=== PATIENT | female | born 1950 | race Caucasian/White ===

== ENCOUNTER 2019-08-03 13:39 | Inpatient (IN) ==
[2019-08-03] MEDS ORDERED: BACITRACIN OINT 0.9 GM PKT ONE (14:32)
[2019-08-03] MEDS ORDERED: LIDOCAINE HCL 1% 20 ML VIAL ONE (14:32)
[2019-08-03] MEDS ORDERED: BACITRACIN INJ 50,000 UNIT VIAL ONE (14:33)
--- NOTE | 2019-08-03 14:39 | History & Physical Bridge Note ---
Date of Service August 03, 2019 History & Physical Bridge Note I have examined the patient, reviewed the History & Physical and in the interval since the performance of the History & Physical I have noted the following changes of clinical significance: no changes noted. I reviewed the indications, procedure, risks and alternatives of pacemaker replacement and lead replacement with her and she understands and agrees to proceed. Her was present during the discussion. Consent obtained. I also discussed conscious sedation and she is agreeable. Consent obtained.
--- NOTE | 2019-08-03 14:40 | Pre Anesthesia Assessment ---
Date of Service August 03, 2019 Pre Sedation Assessment Vital Signs Temp Pulse Resp BP Pulse Ox 08/03/19 14:07 37.5 C 91 H 18 162/74 H 96 Cardiovascular RRR, no murmur, no edema Respiratory normal respiratory effort, lungs clear to auscultation Pre-Sedation Airway Assessment Smoking Status: Never smoker Hx Sleep Apnea: No Short, Thick Neck: Yes Thyromental Distance: > or= 3.5 Finger Breadths Oral Cavity: + Capped Teeth Mallampati Class: III ASA: ASA3 NPO Status Date of Last Intake of Fluids: 08/03/19 Time of Last Intake of Fluids: 00:00 Date of Last Intake of Solid Food: 08/03/19 Time of Last Intake of Solid Foods: 00:00 Procedure Planning Contraindications for Sedation: none Current Medications Reviewed: Yes Notes The planned sedation has been discussed with the patient. Informed Consent was obtained. I have identified the patient, determined the appropriateness of sedation and have assessed the patient immediately prior to the procedure. All medicine(s) and interventions are by my order.
[2019-08-03] MEDS ORDERED: MIDAZOLAM HCL 5 MG/ML 1 ML VIAL ONE (14:51)
[2019-08-03] MEDS ORDERED: fentaNYL citrate 100 MCG/2 ML VIAL ONE ×2 (14:52→15:11)
--- NOTE | 2019-08-03 16:15 | Operative Report ---
Post Operative Report Pre & Post Diagnosis Operation Date: 08/03/19 15:00 Right ventricular lead malfunction Procedure Operation Date: 08/03/19 15:00 Actual Procedures s Insertion Single Lead Only(Not Applicable) - Gustavo Quintana MD p Pacer Gen Change Dual(Left) - Gustavo Quintana MD s Venogram, Unilateral(Not Applicable) - Gustavo Quintana MD Surgeon Gustavo Quintana MD [employer] None Estimated Blood Loss 30 Findings See Below Ventricular lead fracture, it appears to be located where the lead passes under the clavicle consistent with subclavian crush damage. Specimens Old pacemaker, return to [facility] Anesthesia Type Local Complications none Disposition Disposition: PCU Description of Procedure After obtaining informed consent for the procedure, the patient was brought to the laboratory being NPO after midnight. After identification in the laboratory the patient was prepped and draped in the standard sterile manner for a left- sided device replacement. Dye was injected the left arm IV site to opacify the left subclavian vein. The subclavian vein was identified and found to be free of obstruction. The left prepectoral region was anesthetized with 1% lidocaine local anesthetic and once adequate anesthesia was obtained a 5 cm incision was made through the old implant scar and carried down to the pacemaker generator. The generator was dissected free of tissue and explanted. A bacitracin-soaked sponge(50,000 units in 50 cc normal saline solution) was placed in the pocket. An 8 [place] Medtronic lead introducer was placed over the guidewire into the left subclavian vein, the dilator and guidewire were removed and a bipolar a ctive fixation steroid tipped [place] lead was advanced introducer into the superior vena cava. A guidewire was placed back through the introducer and introducer stripped away from lead and guidewire. Using a curved stylette the ventricular lead was advanced through the right ventricular outflow tract and then using a straight stylette was positioned right ventricular apex. Once in position the ventricular pacing threshold was evaluated and bipolar configuration, details are noted on the pacemaker data sheet. The lead was then attached to the anterior pectoral fascia using 2 sutures of 2-0 silk around the lead collar. The guidewire was removed left subclavian vein. The pacemaker was removed from the leads and the leads were connected to an external pacing system. Pacing and sensing characteristics were evaluated in both the atrial and ventricular leads as noted on the implant data sheet. A new pacemaker was attached to the leads and found to be functioning normally. The old ventricular lead was capped and left in the pocket. The bacitracin-soaked sponge was removed from the pocket, the pacemaker was placed in the pocket with the leads coiled beneath it. The incision was closed with a running double subcutaneous closure of 3-0 Vicryl absorbable suture followed by a running subcuticular skin closure of 4-0 Vicryl absorbable suture. I attest to the content of the Intraoperative Record and any orders documented therein. Any exceptions are noted below.
[2019-08-03] MEDS ORDERED: KETOROLAC TROMETHAMINE 10 MG TABLET PO PRN (16:23)
[2019-08-03] MEDS ORDERED: ACETAMINOPHEN 325 MG TAB PO PRN (16:23)
--- NOTE | 2019-08-03 16:30 | Post Anesthesia Assessment ---
Date of Service August 03, 2019 Post Sedation Assessment Vital Signs Temp Pulse Resp BP Pulse Ox 08/03/19 14:07 37.5 C 91 H 18 162/74 H 96 Recovery Score Activity: Moves 4 extremities Consciousness: Fully Awake Oxygen Saturation: > 92% On Room Air Discharge Sedation Level of Care: Fast Track Phase II Post Sedation Plan On clinical assessment, the patient appears to have tolerated the sedation without complications. Patient is recovering as anticipated. Patient will continue to be monitored by nursing and may be discharged when sedation discharge criteria are met per below protocol. Upon Completions of procedure and additional 15 minutes continue every 5 minute vital signs and the P.A.R. score; then discharge to a Phase I or Fast Track to Phase II per the following guidelines: * Discharge Patient to appropriate Phase II area if PAR is 8 or greater or return to pre- procedure baseline. The post - procedure orders will be as directed. * If PAR score is less than 8 or not return to pre-procedure baseline then patient will follow Phase I monitoring till PAR is reached for Phase II. The Phase I may be done in procedure room or may call to secure a Phase I area. * If naloxone or flumazenil are used for reversal, hold in Phase I for continue d monitoring from when last reversal dose was given for a minimum of 60 minutes or longer pending the nurse and/or physician discretion of patient condition before discharge to Phase II. Please call the Sedation Physician to re-evaluate and complete post-note for discharge to Phase II area. Do NOT discharge from procedure sedation or Phase 1 until post- sedation evaluation note is complete by procedure /sedation MD Sedation Discharge Instructions to be given to the patient at discharge to home.
[2019-08-03 17:43] LABS: INR 1.2 (0.9-1.1); Prothrombin Time 12.5 Seconds (9.0-12.0)
[2019-08-03] MEDS ORDERED: WARFARIN SOD 5 MG TAB PO ONE (18:30)
[2019-08-03] MEDS: CALCIUM CARBONATE 1250MG TAB PO SCH (20:30)
[2019-08-03] MEDS: FAMOTIDINE 20 MG TAB PO SCH (20:30)
[2019-08-04 04:27] LABS: INR 1.2 (0.9-1.1); Prothrombin Time 11.9 Seconds (9.0-12.0)
[2019-08-04] MEDS: CALCIUM CARBONATE 1250MG TAB PO SCH (08:14)
[2019-08-04] MEDS: FAMOTIDINE 20 MG TAB PO SCH (08:14)
[2019-08-04] MEDS ORDERED: LISINOPRIL 10 MG TAB PO SCH (09:00)
[2019-08-04] MEDS ORDERED: ALLOPURINOL 300 MG TAB PO SCH (09:00)
[2019-08-04] MEDS ORDERED: OMEGA-3 (PURIFIED FISH OIL) 1 GM CAP PO SCH (09:00)
[2019-08-04] MEDS ORDERED: CHOLECALCIFEROL 1,000 UNITS TAB PO SCH (09:00)
[2019-08-04] MEDS ORDERED: CITALOPRAM 20 MG TAB PO SCH (09:00)
[2019-08-04] MEDS ORDERED: SIMVASTATIN 10 MG TAB PO SCH (09:00)
[2019-08-04] MEDS ORDERED: FUROSEMIDE 40 MG TAB PO SCH (09:00)
--- NOTE | 2019-08-04 09:27 | XRay Report ---
XR chest 2V routine CLINICAL HISTORY: Pacemaker insertion. COMPARISON STUDY: No previous studies for comparison. FINDINGS: Left subclavian pacemaker is in place. Lead tips project of the right atrial appendage and right ventricle. A previous suspected right ventricular lead is in place. There is no pneumothorax or pleural effusion. Note is made of mild cardiomegaly. There are median sternotomy wires and a prosthe tic cardiac valve. There is no evidence for pulmonary edema. Cholecystectomy clips are noted. IMPRESSION: No pneumothorax following placement of a left subclavian pacemaker. Electronically signed by: Emmett Garg M.D. 08/04/2019 9:26 AM
--- NOTE | 2019-08-04 09:40 | Cardiology Progress Note ---
Date of Service August 04, 2019 Assessment & Plan (1) Status post placement of cardiac pacemaker: 1: Postop day #1 ventricular lead replacement with pacemaker replacement: She is doing well, the site looks good, the x-ray looks good and the device is functioning well. She is stable for discharge. She was instructed to take 4 mg of Coumadin this evening and her normal dose tomorrow, I have arranged a follow- up visit in 2 days we will check her INR then and make further recommendations. Subjective She is feeling well, minimal incisional discomfort Physical Exam Physical Exam: The incision is clean and dry, no active bleeding. Dressing changed. No swelling or erythema. Results & Data Vital Signs (Past 12 Hours) Vital Signs Temp Pulse Resp BP Pulse Ox 08/04/19 09:29 36.7 C 70 20 128/66 97 08/04/19 08:00 36.7 C 70 20 128/66 97 08/04/19 04:00 36.6 C 72 18 140/74 95 08/04/19 00:00 36.5 C 70 20 123/68 98 Laboratory Results Abnormal lab results 08/03/19 08/04/19 Range/Units 17:14 04:07 PT 12.5 H (9.0-12.0) Seconds INR 1.2 H 1.2 H (0.9-1.1) Diagnostic Findings Electrocardiogram postop: Appropriate pacemaker inhibition Chest x-ray: Good lead position, no pneumothorax Telemetry: Normal pacemaker inhibition Pacemaker evaluation: Excellent pacing and sensing characteristics PG Care Time/CCT Total # of Minutes Spent Total Time Spent with Patient: Total time spent is greater than 50% in coordination of care (as documented) at patient's floor/unit and/or counseling patient:
[2019-08-04] MEDS ORDERED: WARFARIN SOD 2 MG TAB PO SCH (16:00)
--- NOTE | 2019-08-16 07:57 | Discharge Summary ---
Date of Service August 16, 2019 Admission HPI Per Admitting Provider This is a 69-year-old woman who has been followed in the [place] area but now is being followed here. She has a history of aortic stenosis for which she had a St. Tj mechanical valve implanted on 03/29/2004. She had heart block postoperatively and had a dual-chamber pacemaker implanted on 04/04/2004. Her pacemaker is used either very infrequently or not at all. Evidently her street cleaning equipment operator in [place] told her that he may be able to take it out in the future. The ventricular lead has subsequently failed with a greater than 2500 ohm impedance suggestive of a lead fracture. It is also approaching replacement time. We have been debating whether the pacemaker can be removed (although the leads cannot) versus replacing the system which would involve putting a new ventricular lead. Admission Exam Per Admitting Provider Constitutional: Alert, cooperative and in no distress. HEENT: Unremarkable Neck: No jugular venous distention, carotid pulses are normal and equal bilaterally without bruits. Pulmonary: Clear to auscultation bilaterally. Cardiac: Regular rhythm with good prosthetic valve sounds, a soft crescendo decrescendo murmur consistent with her mechanical valve, no gallop or rub. Abdomen: Soft, nontender with normal bowel sounds. Extremities: No edema. Distal pulses intact. Neurologic: No focal findings. Gait is steady. Skin: The device site is well-healed without erythema, swelling or tenderness. No rash, ecchymoses or petechiae. Principal Diagnosis Pacemaker ventricular lead malfunction Discharge Exam [facility] Mallampati Class: III Respiratory normal respiratory effort, lungs clear to auscultation Cardiovascular RRR, no murmur, no edema Discharge Data Allergies Allergy/AdvReac Type Severity Reaction Status Date / Time No Known Allergies Allergy Verified 07/30/19 14:27 Procedures Performed Operation Date: 08/03/19 15:00 Actual Procedures s Insertion Single Lead Only(Not Applicable) - Gustavo Quitnana MD p Pacer Gen Change Dual(Left) - Gustavo Quintana MD s Venogram, Unilateral(Not Applicable) - Gustavo Quintana MD Ordered Studies 08/03/19 07:14 CL Cath Imgs for PACS use only Routine Hospital Course (1) Status post placement of cardiac pacemaker: Pacemaker replacement with ventricular lead replacement was performed without difficulty. Postop day #1 ventricular lead replacement with pacemaker replacement: She is doing well, the site looks good, the x-ray looks good and the device is functioning well. She is stable for discharge. She was instructed to take 4 mg of Coumadin this evening and her normal dose tomorrow, I have arranged a follow-up visit in 2 days we will check her INR then and make further recommendations. Total Time Total Time Spent Total Time Spent (In Minutes): 30 Discharge Plan Discharge Items Patient Disposition: Home - Self-Care Reason For Visit: LEAD REVISION Discharge Diagnosis: Pacemaker and lead revision Activity: Per Instructions section Bathing: Keep incision dry Driving/Machine Use: No limitations Non-emergency contact: Primary Care Provider Call non-emergency contact if: you have any medication questions Follow-up/Referrals: Gustavo Quintana MD [Physician] - 08/06/19 10:00 am Jessica Mcgraw MD [Primary Care Provider] - Diet: Heart Healthy Addtl Attending Provider Instructions: ACTIVITY RECOMMENDATIONS: * Do not raise affected arm over head for 2 weeks. SPECIAL CARE INSTRUCTIONS: * If bleeding occurs, apply direct pressure to area for 5 minutes. * Call your doctor if you have severe pain, fever, drainage or bleeding at site. * Keep dressing on and dry for 48 hours then remove. * Keep any scheduled doctor's appointment. * Implant Card - hand held device with website information given. SKIN IRRITATION: * You may experience some redness and/or swelling in the area where radiation was administered. If any skin irritation occurs, please contact your family physician. FOLLOW UP VISIT: Keep any scheduled doctor appointments. Addtl Field Instructor Provider Instructions: none Pending Studies at Discharge: No Stand-Alone Forms: My [facility] Medications and DC Order Prescriptions: Continued amoxicillin 500 mg capsule 2,000 mg PO ONCE PRN (Reason: DENTAL APPOINTMENTS) RF: 0 warfarin 2 mg tablet 2 mg PO DAILY Qty: 90 RF: 0 citalopram 20 mg tablet 20 mg PO DAILY RF: 0 famotidine 40 mg tablet 40 mg PO BID RF: 0 allopurinol 300 mg tablet 300 mg PO DAILY RF: 0 calcium carbonate [Calcium 600] 600 mg calcium (1,500 mg) tablet 600 mg PO BID RF: 0 omega-3 fatty acids [Super [place]-3] 1,000 mg capsule 2,000 mg PO DAILY RF: 0 simvastatin 10 mg tablet 10 mg PO DAILY RF: 0 cholecalciferol (vitamin D3) 1,000 unit (25 mcg) tablet 1,000 units PO DAILY RF: 0 furosemide 40 mg tablet 40 mg PO Q OTHER DAY Qty: 90 RF: 0 lisinopril 10 mg tablet 10 mg PO DAILY Qty: 30 RF: 0 Discharge Orders: Discharge Order (Routine); Ordered 08/04/19 Ordered By: Gustavo Batista/Other Patient Handouts: Implantation Pacemaker Dc Admission Data Admit Date/Time: 08/03/19 15:43 Attending Provider: Gustavo Quintana Admit Provider: Gustavo Quintana Primary Care Provider: Jessica Mcgraw Other Interventions: Discharge Summary Assessment (RN) Last Done: 08/04/19 09:29 DC Date/Time DO NOT enter until pt leaves facility: 08/04/19 10:16
== END 2019-08-04 10:16 | disposition home or self-care (01) | DRG 244 ==
LOC: EP 13:39 → 1E 15:43
DX: Z45.010 Encounter for checking and testing of cardiac pacemaker pulse generator [battery]; Z95.2 Presence of prosthetic heart valve; Z79.01 Long term (current) use of anticoagulants; Y92.009 Unspecified place in unspecified non-institutional (private) residence as the place of occurrence of the external cause; I45.9 Conduction disorder, unspecified; Y71.2 Prosthetic and other implants, materials and accessory cardiovascular devices associated with adverse incidents; T82.190A Other mechanical complication of cardiac electrode, initial encounter

== ENCOUNTER 2021-05-08 10:19 | Observation (INO) ==
--- NOTE | 2021-04-25 15:21 | PAT Medication Instructions ---
Medication Instructions Date of Service April 25, 2021 Home Medications allopurinol 300 mg tablet 300 mg PO QAM amoxicillin 500 mg capsule 2,000 mg PO ONCE PRN cholecalciferol (vitamin D3) 25 mcg (1,000 unit) tablet 1,000 units PO QAM citalopram 20 mg tablet 20 mg PO HS famotidine 40 mg tablet 40 mg PO BID furosemide 40 mg tablet 40 mg PO Q OTHER DAY lisinopril 10 mg tablet 10 mg PO QAM omega-3 fatty acids 1,000 mg capsule 1,200 mg PO BID simvastatin 10 mg tablet 10 mg PO HS warfarin 2 mg tablet 2 mg PO HS calcium carbonate 600 mg calcium (1,500 mg) tablet 1,200 mg PO BID acetaminophen [Tylenol Extra Strength] 500 mg PO Q6H PRN Continue as directed amoxicillin 500 mg capsule 2,000 mg PO ONCE PRN (if needed) ASK your prescriber and surgeon warfarin 2 mg tablet 2 mg PO HS STOP taking 2 weeks before surgery omega-3 fatty acids 1,000 mg capsule 1,200 mg PO BID DO NOT take the morning of surgery cholecalciferol (vitamin D3) 25 mcg (1,000 unit) tablet 1,000 units PO QAM furosemide 40 mg tablet 40 mg PO Q OTHER DAY lisinopril 10 mg tablet 10 mg PO QAM calcium carbonate 600 mg calcium (1,500 mg) tablet 1,200 mg PO BID Take morning of surgery With a small sip of water, OTHERWISE NOTHING TO EAT OR DRINK AFTER MIDNIGHT: allopurinol 300 mg tablet 300 mg PO QAM famotidine 40 mg tablet 40 mg PO BID acetaminophen [Tylenol Extra Strength] 500 mg PO Q6H PRN (okay to take up to 4 hours prior to surgery if needed) Take evening before surgery citalopram 20 mg tablet 20 mg PO HS famotidine 40 mg tablet 40 mg PO BID simvastatin 10 mg tablet 10 mg PO HS calcium carbonate 600 mg calcium (1,500 mg) tablet 1,200 mg PO BID acetaminophen [Tylenol Extra Strength] 500 mg PO Q6H PRN (if needed) Other Notes If you have any questions please call us at [phone] or [phone] or [phone] or [phone]
--- NOTE | 2021-04-26 11:58 | Anesthesiology Consultation ---
Date of Service April 26, 2021 Assessment & Plan (1) Encounter for pre-operative examination: Chart Review Chart Review: Acceptable Risk for Surgery (pending cardio clearance and preop Covid testing ) and Patient seen in Pre Admission Testing Awaiting cardiac clearance scheduled 04/27/21 - Check coags AM DOS -Pt does get dizzy when laying flat Per PAT appt on 04/26/21, pt resides in [facility]. Wears mask, uses good hand hygiene and socially distances. Travels to [facility] for medical appts. No known Covid positive contacts or Covid related symptoms. Pt denies any known Covid infection in the past 90 days. Preop Covid testing scheduled 05/04/21 =will await results. Educated on importance of self quarantining, social distancing and wearing mask in public both for the patient and household contacts. Pt fully vaccinated. Teaching & Discussion Pre-Anesthesia Teaching/Discussion Notes: Instructed NPO after midnight before surgery,except medications with 15 cc of water. Medication instructions provided according to the [facility] guidelines. History Surgery Operation Date: 05/08/21 12:10 Proposed Procedures p Left Total Knee Arthroplasty - Franklin Hinson MD Height/Weight Height: 5 ft 5 in Weight: 91.4 kg Allergies Allergy/AdvReac Type Severity Reaction Status Date / Time No Known Drug Allergies Allergy Verified 04/25/21 09:38 Medications Home Medications Medication Instructions Recorded Confirmed Last Taken allopurinol 300 mg tablet 300 mg PO QAM tab 07/12/19 04/25/21 Unknown amoxicillin 500 mg capsule 2,000 mg PO ONCE PRN cap 07/12/19 04/25/21 Unknown cholecalciferol (vitamin D3) 25 1,000 units PO QAM tab 07/12/19 04/25/21 Unknown mcg (1,000 unit) tablet citalopram 20 mg tablet 20 mg PO HS tab 07/12/19 04/25/21 Unknown famotidine 40 mg tablet 40 mg PO BID tab 07/12/19 04/25/21 Unknown furosemide 40 mg tablet 40 mg PO Q OTHER DAY #90 tab 07/12/19 04/25/21 Unknown lisinopril 10 mg tablet 10 mg PO QAM #30 tab 07/12/19 04/25/21 Unknown omega-3 fatty acids 1,000 mg 1,200 mg PO BID cap 07/12/19 04/25/21 Unknown capsule simvastatin 10 mg tablet 10 mg PO HS tab 07/12/19 04/25/21 Unknown warfarin 2 mg tablet 2 mg PO HS #90 tab 07/12/19 04/25/21 Unknown calcium carbonate 600 mg calcium 1,200 mg PO BID tab 05/31/20 04/25/21 Unknown (1,500 mg) tablet acetaminophen [Tylenol Extra 500 mg PO Q6H PRN 04/25/21 04/25/21 Unknown Strength] Wheeled Walker #1 ea 04/26/21 04/26/21 Unknown Past Medical History Medical History Aortic valve stenosis S/p AVR (St Tj valve) in 2003- mechanical- no Warfarin Chronic kidney disease STAGE 3-F/U DR ALISA DANIELS Depression GERD (gastroesophageal reflux disease) Well controlled and stable Hyperlipidemia Hypertension On anticoagulant therapy S/P AVR 2003 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 Exercise / Class Metabolic Activity II 4-5 Yardwork/Stairs/Walk up hill (one flight of stairs- no chest pain or SOB ) Past Family History Family History Sister Diabetes Brother Heart defect Mother Hypertension Parkinson disease Grandmother (Maternal) Malignant neoplasm of uterus Sister Diabetes Denies family history of Kidney disease Past Surgical History Surgical History History of appendectomy History of cardiac pacemaker [facility]-PLACED AND REPLACED 2018-F/U DR NARINDER FUNEZ [facility] History of tonsillectomy and adenoidectomy History of vaginal hysterectomy Hx of aortic valve replacement 2003 [facility] Hx of cholecystectomy Hx of colonoscopy Nausea and vomiting after administration of anesthetic agent Past Anesthesia History No Hx of Anesthesia Complications (with exception to PONV and mild hypotension; slow to wake - groggy- no ICU stay or reintubation ) and No Family Hx of Anesthesia Complications History of PONV History of PONV (relieved with anti-nausea medication ) and Hx of Motion Sickness Social History Smoking Status: Never smoker Do You Dip or Chew Tobacco: No Hx Alcohol Use: Yes Alcohol type: other alcohol intake frequency: holidays/special occasions only Hx Substance Use: No substance use type: does not use Review of Systems Occ post nasal drip Very mild snoring - no witnessed apnea- no hx of sleep study. Patient denies chest pain, shortness of breath, dyspnea on exertion, cough, wheezing, palpitations. No hx of seizures, stroke, [place]. No hx of blood clots or blood transfusions Physical Exam Vital Signs VITALS BP 129/64 P 83 TEMP 98.1 SP02 95% RESP 16 Constitutional no acute distress ENMT Mouth: + small oral opening (mild); no TMJ clicking Thyromental Distance: > or= 3.5 Finger Breadths (3.5) Mallampati Class: II Missing molars Capped on molar Neck neck extension not limited Respiratory normal respiratory effort; no respiratory distress Auscultation: lungs clear to auscultation bilaterally; no wheezes Cardiovascular Rate/Rhythm: regular rate and regular rhythm Heart Sounds: no murmur Vessels: no carotid bruit Clicking with S2 heart sound Musculoskeletal Spine: no pain with cervical ROM Extremities: extremities normal to inspection Psychiatric Orientation: alert Lab Results Anesthesia Preop Results Results Anesthesia Widget: WBC 7.13 K/uL (4.8-10.8) 04/26/21 Hgb 13.2 g/dL (12.0-16.0) 04/26/21 Hct 39.8 % (37-47) 04/26/21 Plt 197 K/uL (130-400) 04/26/21 Na 145 mmol/L (136-145) 04/26/21 K 3.9 mmol/L (3.5-5.1) 04/26/21 Cl 109 mmol/L (98-107) H 04/26/21 CO2 32 mmol/L (21-32) 04/26/21 BUN 20 mg/dl (7-18) H 04/26/21 Creat 1.15 mg/dl (0.6-1.2) 04/26/21 Glucose Level 84 mg/dl (70-99) 04/26/21 PT 33.8 Seconds (9.0-12.0) H 04/26/21 PTT 54.2 Seconds (21.0-31.0) H* 04/26/21 INR 3.7 (0.9-1.1) H 04/26/21 Blood Type O Positive 04/26/21 Antibody Screen NEGATIVE 04/26/21 Testing Electrocardiogram Date: 04/26/21 SR with 1st degree AVB at 81bpm. Left axis deviation. RBBB. When compared to EKG from Aug 04, 2019- no significant change was found per cardio. Chest X-Ray Date: 04/26/21 Findings: + NAD Bilateral sam are prominent, unchanged since prior. Aorta is calcified. Prosthetic cardiac valve and midline sternotomy wires are again seen. Stable position of left-sided triple lead pacemaker with battery pack partially obscuring left lung parenchyma. Echocardiogram Date: 11/14/17 EF: 60 to 65% LV Function: normal RWMA: + none Other Findings: + LVH (Mild/concentric) and + diastolic dysfunction (Type I) Valvular Disease: + MR (Mild) Septal motion consistent with prior cardiac surgery/bundle branch block. Mechanical aortic valve with acceptable transvalvular gradients. Normal estimated RVSP. Aneurysmal appearing ascending aorta, measuring mildly dilated at 3.6 cm. Mild TR. Compared to study from 04/18/2016, mild regurgitation appears mild. Ascending aorta is not visualized. Stress Test Date: 01/21/19 Type: exercise (Echo) Resting LV Function: normal Valvular Disease: MR (Trace ) Negative exercise stress echocardiogram and EKG for ischemia at 99% MPHR. 7 METS achieved. Baseline EKG displays NSRwith normal ST segments. Left axis deviation, right bundle branch block. Mild concentric LVH. Grade 1 diastolic dysfunction. Properly functioning bioprosthetic aortic valve appeared trace pulmonic regurgitation. Trace tricuspid regurgitation. Other Testing Last pacemaker check done at visit 11/29/20= St Tj model pacemaker. There is an abandoned RV lead in place. Implant date 04/04/2004; generator change 08/03/2019. Magnet response D00 100bpm). Underlying rhythm NSR. Not device depe ndent. Mode: DDD. ARPAN/longeity: about 9 years. Per cardio "Dual-chamber pacemaker: I evaluated the pacemaker today, including device interrogation for data collection and battery longevity as well as performance of threshold measurements. The pacemaker has stable electrical characteristics and the battery voltage remains adequate. One PMT was identified since last interrogation, we did reprogram the device to minimize that. Heart block: She does have about 1% ventricular pacing, this could represent transient AV block. The pacemaker is working well in this regard."
[~2021-05-08 10:19] MED LIST: ACETAMINOPHEN 500 MG TAB PO SCH; BUPIVACAINE 0.5 % 5 MG/1 ML PF 10ML VIAL ONE; BUPIVACAINE LIPOSOME/PF 266 MG, BUPIVACAINE/EPINEPHRINE 50 ML, SODIUM CHLORIDE 0.9% 30 ... INFIL SCH; EPINEPHrine INJ 1 MG/ML AMP ONE; FAMOTIDINE 20 MG TAB PO SCH; GABAPENTIN 300 MG CAP PO SCH; LR 500ML BOLUS, THEN 15ML/HR IV SCH; LR 60ML/HR IV SCH; ROPIVACAINE 0.5% 5 MG/ML 30 ML VIAL ONE; TRANEXAMIC ACID 1,000 MG **IV Intra-op IV SCH
--- NOTE | 2021-05-08 11:24 | History & Physical Bridge Note ---
Date of Service May 08, 2021 History & Physical Bridge Note I have examined the patient, reviewed the History & Physical and in the interval since the performance of the History & Physical I have noted the following changes of clinical significance: no changes noted
[2021-05-08 11:34] LABS: INR 1.1 (0.9-1.1); Partial Thromboplastin Ratio 1.2; Partial Thromboplastin Time 30.3 Seconds (21.0-31.0); Prothrombin Time 11.1 Seconds (9.0-12.0)
[2021-05-08] MEDS ORDERED: PROPOFOL IV EMULSION 10 MG/ML 20 ML VIAL IV ONE ×2 (11:48→13:46)
[2021-05-08] MEDS ORDERED: fentaNYL citrate 100 MCG/2 ML VIAL ONE (11:48)
[2021-05-08] MEDS ORDERED: MIDAZOLAM HCL 1 MG/ML 2ML VIAL ONE (12:24)
[2021-05-08] MEDS ORDERED: SODIUM CHLORIDE 0.9% PF 50 ML VIAL ONE (13:21)
[2021-05-08] MEDS ORDERED: BUPIVACAINE LIPOSOME 1.3% 266 MG/20 ML VIAL ONE (13:21)
[2021-05-08] MEDS ORDERED: BUPIVACAINE 0.25% 30 ML VIAL ONE (13:22)
[2021-05-08] MEDS ORDERED: EPINEPHrine INJ 1 MG/ML AMP ONE (13:22)
[2021-05-08] MEDS: ceFAZolin 2000MG 2,000 MG/15 ML SYR IV SCH ×3 (13:39→23:06)
[2021-05-08] MEDS ORDERED: PHENYLEPHRINE 100MCG/ML 5ML SYR ONE (14:01)
--- NOTE | 2021-05-08 15:36 | Anesthesiology Progress Note ---
Date of Service May 08, 2021 Anesthesia Post Procedure Vital Signs Vital Signs: Temp Pulse Resp BP Pulse Ox 05/08/21 10:35 36.9 C 84 18 162/65 H 98 Transfer of Care Handoff Completed per policy Notes Mental Status: alert / awake / arousable Patient Amnestic to Procedure: Yes Nausea / Vomiting: adequately controlled Pain: adequately controlled Airway Patency, RR, SpO2: stable & adequate BP & HR: stable & adequate Hydration State: stable & adequate Neuraxial Anesthesia: was administered and sensory block is resolving Anesthetic Complications: no major complications apparent
--- NOTE | 2021-05-08 15:37 | Operative Report ---
Post Operative Report Pre & Post Diagnosis Operation Date: 05/08/21 12:30 Pre-Op Diagnosis: Left Knee Advanced Degenerative Joint Disease Post-Op Diagnosis: Left Knee Advanced Degenerative Joint Disease I identified the patient and participated in the time-out.: Yes Procedure Operation Date: 05/08/21 12:30 Actual Procedures p Left Total Knee Arthroplasty(Left) - Franklin Hinson MD Surgeon Franklin Hinson MD Missile Pad Mechanic IVA Christiansen Estimated Blood Loss 50 Findings Consistent with Post-Op Diagnosis Operative findings revealed advanced left knee tricompartment DJD. She had grade 4 [id number] disease in all 3 compartments most severe in the medial side. Moderate knee joint effusion. Fluids 1500 cc Specimens Left knee sent for pathology Drains None Complications none Disposition Accompanied Patient To Recovery: No Indications Patient is a 70-year-old female is had a long history of left knee pain discomfort that is gradually gotten worse over time. She failed all conservative measures. X-rays show advanced left knee arthritis. She elected to proceed with surgical treatment. Description of Procedure Operative implants consist of: 1. Biomet Vanguard size 65 left posterior stabilized femoral component. 2. Biomet size 67 tibial tray. 3. 10 mm posterior stabilized polyethylene insert. 4. 28 x 8 all polypatella. The patient was taken to the operating, identified, placed on the operating table supine position but a contractors were properly padded. IV antibiotics tried by anesthesia team. Spinal anesthetic and abductor canal block had been provided in the holding area. Sellers catheter was placed in sterile fashion. Left thigh turn was then placed in the left lower extremities and prepped and draped in usual sterile fashion. The left leg was elevated exsanguinated with use of an Esmarch and turns placed at 3 mmHg. An anterior approach left knee was then performed through longitudinal incision centered over the patella. Sharp dissection was got through subcutaneous tissue down to the extensor mechanism. A medial parapatellar arthrotomy incision was made. Some subperiosteal dissection was carried out medially. The fat pad was resected from each patella tendon. Lateral patellofemoral ligament was released. Patella subluxated laterally and the knee was flexed. The osteophytes were taken off distal femur. The ACL and PCL were then released in the distal femur and the tibia subluxated anteriorly. The external tibial alignment jig was then placed in the interface the tibia and adjusted 14 mm medially. Proximal tibial cut was made remove about a millimeter bone from the most deficient aspect of the medial tibial plateau. Some osteophytes taken off medially. Tibia sized to a size 67. Attention drawn the femur. The distal femur examined the sharp drill bit intramedullary canal was suction. The left 5 degree valgus cutting guide was placed. Distal femoral cutting block was pinned in place. Distal femoral cut was made to take an additional 3 mm bone off distal femur. Femur was then sized to a size 65. We did downsize a slightly. The AP cutting block was pinned parallel to the epicondylar axis which was 4 degrees of external rotation. The anterior cut, anterior chamfer, posterior cut, posterior chamfer cuts were made. Box cutting guide was placed in a just slight lateral and the box cut was made. The knee was flexed. The remnants of the medial and lateral menisci were excised. The osteophytes were taken off the posterior aspect the femur. A trial femoral component was placed. Tibial tray was pinned in maximum external rotation and the drill and stem punch were used to create the defect in the proximal tibia for the tibial tray. Knee was then trialed and the 10 mm insert fit most appropriately. Attention drawn the patella. The patella was cleaned of all soft tissues. Patella thickness measured 18 mm in thickness was cut down to 12. It was sized to a size 28 patella. The lug holes were drilled for the 28 patella. Lateral osteophytes removed. Patella button was placed. Knee was taken through range of motion patella tracked nicely with no thumbs test. Attention drawn to placing permanent components. All trial components were removed. Bone plug was placed in the distal femur li cl blood loss. A double batch Palacos G cement was mixed. Biomet Vanguard size 65 left posterior stabilized femoral component, size 67 tibial tray, a 10 mm posterior stabilized polyethylene insert, and a 28 x 8 all polypatella then cemented in place. Knee was brought out into full extension until cement hardened. Final cement check was then performed. Pericapsular tissues were injected with total 100 cc of combination of 20 cc of Exparel, 30 cc of normal saline, 50 cc of quarter percent Marcaine with epinephrine. Patient did receive 1 g tranexamic acid. The tourniquet was then let down for turn time 56 minutes. Hemostasis assured use electrocautery. The extensor mechanism closed with combination 1 PDS suture and #1 Vicryl suture in [id number] fashion to the extensor mechanism checked found intact with subcutaneous tissue then closed with 2 Dexon suture in a buried interrupted fashion skin was closed skin naomie. Leg was then cleaned dried and sterile dressing both Xeroform, 4 x 4's, sterile cast padding, True bandage were applied. Patient then transferred to the recovery in stable condition. Patient tolerated procedure well and there were no complications. Stanley Christiansen, my physician anesthesiologists' assistant, was present for the entire procedure. His assistance was essential and required for appropriate patient positioning, prepping and draping, surgical exposure, performing the technical details of the operation, placement the implants, closure of the wound, and placement of the sterile bandage. I attest to the content of the Intraoperative Record and any orders documented therein. Any exceptions are noted below.
--- NOTE | 2021-05-08 15:46 | XRay Report ---
XR knee LT 1 or 2V routine CLINICAL HISTORY: Postoperative evaluation. COMPARISON: Knee radiographs April 26, 2021. FINDINGS: Alignment of the total left knee arthroplasty is anatomic. There is no periprosthetic frac ture or unexpected radiopaque foreign body. There are skin naomie. IMPRESSION: Expected findings following total left knee arthroplasty. ACT 112: Negative or not required by law. Electronically signed by: Emmett Garg M.D. 05/08/2021 3:45 PM
[2021-05-08] MEDS ORDERED: MAGNESIUM HYDROXIDE SUSP 30 ML UDC PO PRN (16:47)
[2021-05-08] MEDS ORDERED: METOCLOPRAMIDE HCL INJ 5 MG/ML 2 ML VIAL IV PRN (16:47)
[2021-05-08] MEDS ORDERED: bisacodyL 10 MG SUPP PR PRN (16:47)
[2021-05-08] MEDS ORDERED: HYDROmorphone INJ 0.5 MG/0.5 ML SYR IV PRN (16:47)
[2021-05-08] MEDS ORDERED: NALOXONE HCL 0.4 MG/1 ML VIAL/CARP IV PRN (16:47)
[2021-05-08] MEDS ORDERED: ONDANSETRON INJ 2 MG/ML 2 ML VIAL IV PRN (16:47)
[2021-05-08] MEDS ORDERED: WARFARIN SOD 4 MG TAB PO ONE (16:47)
[2021-05-08] MEDS ORDERED: ALUMINUM/MAGNESIUM SUSP 30 ML UDC PO PRN (16:47)
[2021-05-08] MEDS ORDERED: traMADol HCL 50 MG TABLET PO PRN (16:47)
[2021-05-08] MEDS: SODIUM CHLORIDE 0.9% 1000ML 1,000 ML IV SCH (16:59)
[2021-05-08] MEDS ORDERED: FUROSEMIDE 40 MG TAB PO SCH (17:00)
[2021-05-08] MEDS: ASCORBIC ACID 500 MG TAB PO SCH (18:23)
[2021-05-08] MEDS: KETOROLAC TROMETHAMINE 15 MG/ML VIAL IV SCH ×2 (18:23→23:05)
--- NOTE | 2021-05-08 18:46 | Progress Notes ---
DATE OF SERVICE: 05/08/2021 SUBJECTIVE: A 70-year-old female postop from a left knee replacement. She is doing well. Really no t having any pain yet. No chest pain or shortness of breath. Not feeling dizzy or lightheaded. OBJECTIVE: VITAL SIGNS: Temperature is 36.3. Vital signs are stable. GENERAL: Shows a pleasant middle-aged female. She is sitting up in bed, eating dinner and talking t o her . LUNGS: Clear to auscultation. HEART: Has a regular rate and rhythm. ABDOMEN: Soft, nontender, nondistended. EXTREMITIES: Grossly neurovascularly intact except as follows: Examination of the left leg reveals the leg to be well aligned. Dressings clean, dry and intact. She can dorsiflex and plantarflex her foot appropriately. NEUROLOGIC: She is neurologically intact. X-RAYS: X-rays of the left knee from recovery room are reviewed. She has a left cemented posterior s tabilized total knee arthroplasty. The components look to be in acceptable position. The film is qu ite rotated. No signs of problems. IMPRESSION: A 70-year-old white female postoperative from a left knee replacement, doing well. Her pain is currently controlled. She is neurologically intact. PLAN: 1. DVT prophylaxis including thigh-high TEDs, SCDs and back on her Coumadin. She takes Coumadin 2 m g a day normally. We will load her with 4 mg tonight, give her 3 mg tomorrow and then back on her no rmal dose of 2 mg on . 2. PT/OT. She can weightbear as tolerated, left total knee protocol. 3. Pain control, doing well with current pain regimen. We will have to adjust medicines as her pain returns. 4. IV antibiotics x24 hours. 5. Coumadin use. We will load her back as described above. We will check INRs daily in the hospita l. 6. Disposition: She is planning to be discharged to home with some home health using [facility] program once medically stable and pain controlled. Job ID: [id number]
[2021-05-08] MEDS ORDERED: SENNA 8.6 MG TAB PO SCH (21:00)
[2021-05-08] MEDS ORDERED: SIMVASTATIN 10 MG TAB PO SCH (21:00)
[2021-05-08] MEDS ORDERED: CITALOPRAM 20 MG TAB PO SCH (21:00)
[2021-05-08] MEDS ORDERED: TRANEXAMIC ACID / 0.7% NACL 1,000 MG/100 ML BAG IV SCH (21:30)
[2021-05-08] MEDS: CALCIUM CARBONATE 1250MG TAB PO SCH (21:42)
[2021-05-08] MEDS: FAMOTIDINE 40 MG TABLET PO SCH (21:42)
[2021-05-08] MEDS: DOCUSATE SODIUM 100 MG CAP PO SCH (21:42)
[2021-05-08] MEDS: OMEGA-3 (PURIFIED FISH OIL) 1 GM CAP PO SCH (21:42)
[2021-05-08] MEDS: ACETAMINOPHEN 500 MG TAB PO SCH (21:43)
[2021-05-09] MEDS: SODIUM CHLORIDE 0.9% 1000ML 1,000 ML IV SCH (03:18)
[2021-05-09] MEDS: KETOROLAC TROMETHAMINE 15 MG/ML VIAL IV SCH ×2 (06:06→11:26)
[2021-05-09] MEDS: ceFAZolin 2000MG 2,000 MG/15 ML SYR IV SCH (06:06)
[2021-05-09] MEDS: ACETAMINOPHEN 500 MG TAB PO SCH ×2 (06:06→13:08)
[2021-05-09 06:18] LABS: Hematocrit (blood only) 34.3 % (37-47); Hemoglobin 11.1 g/dL (12.0-16.0); Mean Corpuscular Hemoglobin 31.4 pg (25-34); Mean Corpuscular Hgb Conc 32.4 g/dL (32-36); Mean Corpuscular Volume 97.2 fL (80-100); Mean Platelet Volume 10.8 fL (7.4-10.4); Platelet Count 148 K/uL (130-400); RDW Coefficient of Variation 14.1 % (11.5-14.5); RDW Standard Deviation 49.8 fL (36.4-46.3); Red Blood Count 3.53 M/uL (4.2-5.4); White Blood Count 7.23 K/uL (4.8-10.8)
[2021-05-09 06:34] LABS: INR 1.2 (0.9-1.1); Prothrombin Time 11.8 Seconds (9.0-12.0)
[2021-05-09 06:39] LABS: Calcium 8.2 mg/dl (8.5-10.1); Creatinine Clr Calc Pharmacy 57.8 ml/min; Est GFR (African American) 65.6 ml/min; Est GFR (Non-African American) 56.6 ml/min
--- NOTE | 2021-05-09 07:46 | Orthopedic Progress Note ---
Date of Service May 09, 2021 Assessment & Plan (1) Status post total left knee replacement: Dvt prophylaxis: teds, scd's, and coumadin. She will get 3mg today and then resume regular 2mg dose tomorrow. Her INR is 1.2 today. Pain is controlled. PT/OT Discharge planning: Possibly home with home health today depending how therapy goes. She can change her dressing tomorrow if she goes home today. Subjective . POD #1 from left tka. She is doing pretty well today. Not having much knee pain. No other complaints. Review of Systems All systems reviewed & are unremarkable except as noted in HPI & below. Physical Exam . alert and oriented. NAD Left leg: Dressing is clean, dry, intact. She can lift her leg with some difficulty. She can dorsiflex, plantarflex. NVI Results & Data Results & Data Laboratory Results . Diagnostic Findings . PG Care Time/CCT Total # of Minutes Spent Total Time Spent with Patient: Total time spent is greater than 50% in coordination of care (as documented) at patient's floor/unit and/or counseling patient: Coding Level of Care Code 16621 Post Operative Follow-Up Diagnoses Status post total left knee replacement Z96.652
[2021-05-09] MEDS ORDERED: dexAMETHasone 10 MG in SYRINGE 0 ML IV SCH (08:00)
[2021-05-09] MEDS: ASCORBIC ACID 500 MG TAB PO SCH (08:20)
[2021-05-09] MEDS: DOCUSATE SODIUM 100 MG CAP PO SCH (08:21)
[2021-05-09] MEDS: CALCIUM CARBONATE 1250MG TAB PO SCH (08:21)
[2021-05-09] MEDS: OMEGA-3 (PURIFIED FISH OIL) 1 GM CAP PO SCH (08:22)
[2021-05-09] MEDS: FAMOTIDINE 40 MG TABLET PO SCH (08:22)
[2021-05-09] MEDS ORDERED: allopurinoL 300 MG TAB PO SCH (09:00)
[2021-05-09] MEDS ORDERED: CHOLECALCIFEROL 1,000 UNITS 25 MCG TAB PO SCH (09:00)
[2021-05-09] MEDS ORDERED: MULTIVITAMIN TAB PO SCH (09:00)
[2021-05-09] MEDS ORDERED: lisinopril 10 MG TAB PO SCH (09:00)
[2021-05-09] MEDS ORDERED: WARFARIN SOD 3 MG TAB PO SCH (16:00)
--- NOTE | 2021-05-11 14:26 | Discharge Summary ---
Date of Service May 11, 2021 Discharge Data Procedures Performed Operation Date: 05/08/21 12:30 Actual Procedures p Left Total Knee Arthroplasty(Left) - Franklin Hinson MD Hospital Course (1) Status post total left knee replacement: 70 year old female admitted on 05/08/21 and underwent total knee arthroplasty. She tolerated the procedure well and there were no complications. Transferred to the PACU post op and later to the orthopedic floor for further care. She was given ancef for antibiotic prophylaxis. She was also given SERENA stockings, SCDs, and coumadin for DVT prophylaxis. Hemoglobin, hematocrit, and vital signs were monitored during her hospital stay and remained stable. Did not require any blood transfusions. There were no complications during her hospital stay. By post op day #1 the patient was tolerating a regular diet, pain was reasonably controlled with oral pain medicine, and she was participating in physical therapy. On post op day #1 the patient was discharged home and set up with home health care. She was given printed discharge instructions including prescriptions for extra strength tylenol and tramadol. Continue physical therapy, weight bearing as tolerated. Continue SERENA stockings. Follow up approximately 2 weeks post op or sooner if there are problems or concerns. Coding Level of Care Code None Diagnoses Status post total left knee replacement Z96.652
== END 2021-05-09 14:18 | disposition home health service (06) ==
LOC: ASU 10:19 → 3E 10:19